=== PATIENT | female | born 1980 | race Caucasian/White ===

== ENCOUNTER 2019-03-15 22:40 | Emergency (ER) | payer MEDICARE ==
[2019-03-15] MEDS ORDERED: Ketorolac Tromethamine 30 MG/ML VIAL ONE (23:13)
--- NOTE | 2019-03-15 23:19 | RAD ---
3 views right ankle: 03/15/2019 COMPARISON: None available HISTORY: Injury, trauma, pain FINDINGS: There is prominent lateral soft tissue swelling. There is an obliquely oriented fracture of the distal right fibula. The distal fracture fragment demonstrates 4 mm of posterior displacement. No additional fracture or evidence of dislocation. IMPRESSION: Obliquely oriented distal right fibular fracture with prominent overlying soft tissue swe lling.
[2019-03-15] MEDS ORDERED: HYDROcodone/Acetaminophen 10/325 mg Tablet ONE (23:27)
== END 2019-03-15 23:45 | disposition home or self-care (01) ==
LOC: ERS 22:40
DX: S82.831A Other fracture of upper and lower end of right fibula, initial encounter for closed fracture (principal); F43.10 Post-traumatic stress disorder, unspecified; W19.XXXA Unspecified fall, initial encounter; Y93.18 Activity, surfing, windsurfing and boogie boarding
CPT/HCPCS: 96372; J1885